=== PATIENT | male | born 1985 | race Caucasian/White ===

== ENCOUNTER 2019-07-25 05:04 | Emergency (ER) | payer BC ==
[2019-07-25] MEDS ORDERED: Ketorolac Tromethamine 30 MG/ML VIAL ONE (05:29)
[2019-07-25 05:47] LABS: #Basophils 0.1 thou/uL (0.0-0.2); #Eosinphils 0.4 thou/uL (0.0-0.7); #Lymphocytes 3.2 thou/uL (1.20-3.40); #Monocytes 0.7 thou/uL (0.11-0.59); #Neutrophils 3.7 thou/uL (1.40-6.50); %Basophils 0.8 % (0.0-1.0); %Eosinophils 5.4 % (0.0-10.0); %Lymphocytes 39.1 % (21.0-51.0); %Monocytes 9.1 % (0.0-10.0); %Neutrophils 45.5 % (42.0-75.0); Hemoglobin 16.4 g/dL (14.0-18.0); Mean Corpuscular HGB CONC 33.2 g/dL (32.0-36.0); Mean Corpuscular Hemoglobin 30.1 pg (27.0-31.0); Mean Corpuscular Volume 90.8 fL (78.0-98.0); Mean Platelet Volume 7.8 fL (7.4-10.4); Platelet Count 260 thou/uL (130-400); RBC Distribution Width 11.4 % (11.5-14.5); Red Blood Cell (RBC) Count 5.45 mill/uL (4.70-6.10); White Blood Cell (WBC) Count 8.1 thou/uL (4.8-10.8)
[2019-07-25 06:09] LABS: ALT (SGPT) 23 U/L (8-55); AST (SGOT) 22 U/L (5-34); Albumin 4.5 g/dL (3.5-5.0); Alkaline Phosphatase 64 U/L (40-110); Anion Gap 13 mmol/L (10-20); BUN (Urea Nitrogen) 13 mg/dL (8.9-20.6); Bilirubin, Total 0.3 mg/dL (0.2-1.2); Calc. Creatinine Clearance 0 mL/min (70-130); Calcium 9.3 mg/dL (7.8-10.44); Carbon Dioxide 23 mmol/L (22-29); Chloride 107 mmol/L (98-107); Estimated GFR-MDRD 66; Globulin 2.9 g/dL (2.4-3.5); Glucose 110 mg/dL (70-105); Potassium 4.1 mmol/L (3.5-5.1); Protein, Total 7.4 g/dL (6.0-8.3); Sodium 139 mmol/L (136-145)
[2019-07-25] MEDS ORDERED: HYDROcodone/Acetaminophen 5/325 mg Tablet ONE (06:27)
--- NOTE | 2019-07-25 09:34 | CT ---
PRELIMINARY REPORT/[facility]/EMERGENCY AFTER HOURS PROCEDURE: PROCEDURE INFORMATION: Exam: CT Abdomen And Pelvis Without Contrast Exam date and time: 07/25/2019 5:50 AM Clinical history: 33 years old, male; Abdominal pain; Right; Patient HX: M33 presents to ED with C/O R flank pain onset this morning. PT states that he woke up this morning and went to the restroom when after urinating the R flank pain onset. PT reports noticing his urine to be a different color than u sual. PT reports past HX of kidney stones and reports that this feels similar. PT states that his las t kidney stone was approx. 10 years ago and he was able to pass it by himself. PT denies fever, chill s, and n/v/d TECHNIQUE: Imaging protocol: Computed tomography of the abdomen and pelvis without contrast. COMPARISON: No relevant prior studies available. FINDINGS: Lungs: The lung bases are clear. Liver: Unremarkable. Gallbladder and bile ducts: No definite gallbladder abnormality by CT. No biliary tree dilation. Pancreas: Unremarkable. Spleen: Unremarkable. Adrenals: Unremarkable. Kidneys and ureters: Mild right hydronephrosis and hydroureter. There is a 5 mm distal right ureteral calculus, about 5 cm of the UVJ. The calculus lies at about the S2 level. No definite intrarenal calculus. The left kidney appears essentially unremarkable. Stomach and bowel: There are no CT findings to strongly suggest diverticulitis. Appendix: The appendix is visualized and appears normal. Intraperitoneal space: No free air, ascites, or bowel distention. Vasculature: No evidence for abdominal aortic aneurysm. Lymph nodes: No retroperitoneal adenopathy. Bladder: Possibly some mild diffuse urinary bladder wall thickening. CT evaluation is limited, as the bladder is almost empty. While nonspecific, this could indicate evidence for cystitis. Please correl ate clinically. Reproductive: Essentially unremarkable for age. Bones/joints: No significant acute finding. Soft tissues: No significant acute finding. IMPRESSION: 1. 5 mm distal right ureteral calculus, details above. 2. Mild right hydronephrosis and hydroureter. 3. Possible mild urinary bladder wall thickening, see above. 4. Normal appendix. 5. Other findings discussed above. Thank you for allowing us to participate in the care of your patient. Dictated and Authenticated by: Davis Barry MD 07/25/2019 6:10 AM Central Time ([place] & [place]) FINAL REPORT CT ABDOMEN AND PELVIS WITHOUT CONTRAST: FINDINGS/IMPRESSION: I agree with the preliminary report given by Heena. POS: [facility]
== END 2019-07-25 06:30 | disposition home or self-care (01) ==
LOC: ERS 05:04
DX: N13.2 Hydronephrosis with renal and ureteral calculous obstruction (principal); F17.210 Nicotine dependence, cigarettes, uncomplicated; Z87.442 Personal history of urinary calculi; Z79.899 Other long term (current) drug therapy
CPT/HCPCS: 36415; 74176; 80053; 85025; J1885